=== PATIENT | female | born 1960 | race Hispanic/Latino ===

== ENCOUNTER 2019-06-18 11:30 | Outpatient (CLI) | payer OTHER ==
--- NOTE | 2019-06-18 12:11 | RAD ---
Exam: XR Shoulder Rt 3 View STANDARD HISTORY: Chronic right shoulder pain COMPARISON: None FINDINGS: Mild right acromioclavicular joint osteoarthritis is present. The coracoclavicular and acromioclavicu lar distances are within normal limits. No acute fracture, dislocation, or other acute osseous abnormality is identified. IMPRESSION: No acute osseous abnormality is identified.
== END 2019-06-18 11:31 | disposition home or self-care (01) ==
LOC: MADRAD 11:30
PROVIDERS: ATTEND Family Medicine
DX: M25.511 Pain in right shoulder (principal)

== ENCOUNTER 2019-07-14 09:09 | Outpatient (CLI) | payer OTHER ==
--- NOTE | 2019-07-14 10:22 | RAD ---
CHEST 2 VIEWS: HISTORY: COPD. FINDINGS: Heart size is normal. The lungs are clear. No confluent pneumonia, overt edema, or pleural effusion . IMPRESSION: No acute intrathoracic disease. Stable from prior study. POS: [facility]RE
== END 2019-07-14 09:10 | disposition home or self-care (01) ==
LOC: MADRAD 09:09
PROVIDERS: ATTEND Family Medicine
DX: J44.0 Chronic obstructive pulmonary disease with (acute) lower respiratory infection (principal)
CPT/HCPCS: 71046

== ENCOUNTER 2019-07-22 14:56 | Emergency (ER) | payer OTHER ==
[~2019-07-22 14:56] MED LIST: Iopamidol 370 76% 125 ML VIAL FS ONE
[2019-07-22] MEDS ORDERED: Clopidogrel Bisulfate 75 MG TAB ONE (15:28)
[2019-07-22] MEDS ORDERED: Ventolin HFA Inhaler 60 PUFF INHALER ONE (15:28)
--- NOTE | 2019-07-22 15:32 | RAD ---
RADIOGRAPH CHEST 1 VIEW: DATE: 07/22/2019 HISTORY: 58-year-old female with chest pain. COMPARISON: 07/14/2019 FINDINGS: There is no pulmonary edema, pneumothorax, or cardiomegaly. The lateral costophrenic angles are sharp . Calcified bilateral breast implants overlapped the lateral lung bases. The left lateral lung base appears higher in attenuation compared to the prior study, but that is probably entirely due to the c alcified breast implant. That area is difficult to evaluate. Otherwise, the rest of the visualized lung sanchez are clear. IMPRESSION: No acute cardiopulmonary findings.
[2019-07-22 15:55] LABS: #Basophils 0.1 thou/uL (0.0-0.2); #Eosinphils 0.1 thou/uL (0.0-0.7); #Monocytes 0.6 thou/uL (0.11-0.59); #Neutrophils 5.4 thou/uL (1.40-6.50); %Basophils 1.4 % (0.0-1.0); %Lymphocytes 32.5 % (21.0-51.0); %Monocytes 6.7 % (0.0-10.0); %Neutrophils 58.5 % (42.0-75.0); Hemoglobin 13.7 g/dL (12.0-16.0); Mean Corpuscular HGB CONC 31.8 g/dL (32.0-36.0); Mean Corpuscular Hemoglobin 28.7 pg (27.0-31.0); Mean Corpuscular Volume 90.1 fL (78.0-98.0); Mean Platelet Volume 8.3 fL (7.4-10.4); Platelet Count 270 thou/uL (130-400); RBC Distribution Width 12.4 % (11.5-14.5); Red Blood Cell (RBC) Count 4.79 mill/uL (4.20-5.40); White Blood Cell (WBC) Count 9.2 thou/uL (4.8-10.8)
[2019-07-22 16:10] LABS: ALT (SGPT) 109 U/L (8-55); AST (SGOT) 33 U/L (5-34); Albumin 4.4 g/dL (3.5-5.0); Alkaline Phosphatase 99 U/L (40-110); Anion Gap 17 mmol/L (10-20); BUN (Urea Nitrogen) 9 mg/dL (9.8-20.1); Bilirubin, Total 0.5 mg/dL (0.2-1.2); CK (CPK) 95 U/L (29-168); Calc. Creatinine Clearance 0 mL/min (70-130); Calcium 9.9 mg/dL (7.8-10.44); Carbon Dioxide 21 mmol/L (22-29); Chloride 107 mmol/L (98-107); Estimated GFR-MDRD 82; Glucose 86 mg/dL (70-105); Lipase 36 U/L (8-78); Potassium 3.9 mmol/L (3.5-5.1); Protein, Total 7.4 g/dL (6.0-8.3); Sodium 141 mmol/L (136-145)
--- NOTE | 2019-07-22 16:58 | CT ---
CT PULMONARY ANGIOGRAM WITH IV CONTRAST AND 3D POSTPROCESSIN07/22/19 HISTORY: Dyspnea, elevated D-dimer. FINDINGS: There is good contrast opacification of the pulmonary artery vasculature without filling defects to s uggest pulmonary embolism. The thoracic aorta is well opacified without aneurysmal dissection. No ple ural or pericardial effusions are seen. No pneumothoraces, lobar consolidation, or lung nodules/masses are noted. There is subsequent atelect asis in the left lower lobe. There are degenerative changes of the spine. There are bilateral calcified breast implants. A small h iatal hernia is present. IMPRESSION: 1. No CT evidence of pulmonary embolism. 2. Small hiatal hernia. POS: [facility]
== END 2019-07-22 17:15 | disposition home or self-care (01) ==
LOC: MADERS 14:56
DX: R07.9 Chest pain, unspecified (principal); R06.00 Dyspnea, unspecified; R06.03 Acute respiratory distress; K58.9 Irritable bowel syndrome, unspecified; J20.9 Acute bronchitis, unspecified; J44.0 Chronic obstructive pulmonary disease with (acute) lower respiratory infection; I10 Essential (primary) hypertension; F17.210 Nicotine dependence, cigarettes, uncomplicated; Z79.899 Other long term (current) drug therapy
CPT/HCPCS: 71045; 71275; 80053; 82550; 83690; 84484; 85025; 85379; 93005; Q9967